=== PATIENT | male | born 1950 | race Caucasian/White ===

== ENCOUNTER → 2017-10-02 | Outpatient (CLI) | payer OTHER, MEDICARE | LOC: BHFA 11:00 | PROVIDERS: ATTEND Internal Medicine Cardiovascular Disease | DX: I48.91 Unspecified atrial fibrillation (principal) ==

== ENCOUNTER → 2017-11-08 | Outpatient (CLI) | payer OTHER, MEDICARE | LOC: BHFA 10:00 | PROVIDERS: ATTEND Internal Medicine Cardiovascular Disease | DX: R09.89 Other specified symptoms and signs involving the circulatory and respiratory systems (principal) ==

== ENCOUNTER 2018-01-02 08:48 | Emergency (ER) | payer OTHER, MEDICARE ==
[2018-01-02 08:55] VITALS: TEMP 98.4
--- NOTE | 2018-01-02 09:03 | CPEKG ---
Heart Rate: 59 RR Interval: 1017 P-R Interval: 152 QRSD Interval: 102 QT Interval: 408 QTC Interval: 405 P [employer]: 61 QRS [employer]: 56 T Wave [employer]: 83 EKG Severity - NORMAL ECG - EKG Impression: SINUS RHYTHM Electronically Signed By: Theodora Kearney 02-Jan-2018 13:45:29
[2018-01-02 09:20] LABS: PLATELET COUNT 130 10^3/uL (150-400)
--- NOTE | 2018-01-02 10:35 | EDPHY ---
H & P Stated Complaint: hx afib/ has had irregular hr x 3 days/ Time Seen by Provider: 01/02/18 08:57 HPI/ROS: Chief complaint: Chest discomfort History of present illness: This is a 67-year-old male who presents to the emergency department for chest discomfort. He states he developed the discomfort 3 nights ago. The 1st night the symptoms began he reports squeezing pressure in his chest and in his back. He became quite clammy. Symptoms ultimately resolved on their own. However the following evening he had episodes of palpitations lasting for few hours. He does have a history of paroxysmal atrial fibrillation and felt this was likely what was causing it. Last night he was feeling well and essentially symptoms have resolved. He talked with his farm or ranch animal caretaker Dr. Nam Jasmine today who asked him to come to the emergency department. On my evaluation he is asymptomatic. Review of systems: A 10 point review of systems was obtained and other than described above was negative - Personal History Current Tetanus/Diphtheria Vaccine: Yes - Medical/Surgical History Hx Asthma: No Hx Chronic Respiratory Disease: No Hx Diabetes: No Hx Cardiac Disease: Yes Hx Renal Disease: No Hx Cirrhosis: No Hx Alcoholism: No Hx HIV/AIDS: No Hx Splenectomy or Spleen Trauma: No Other PMH: afib, depression - Social History Smoking Status: Former smoker - Physical Exam Exam: General Appearance: Alert, nontoxic. Eyes: Pupils equal and round no pallor or injection. ENT, Mouth: Mucous membranes moist. Respiratory: There are no retractions, lungs are clear to auscultation. Cardiovascular: Regular rate and rhythm. Gastrointestinal: Abdomen is soft and nontender, no masses, bowel sounds normal. Neurological: Alert and oriented x4. Strength and sensation intact and symmetrical. Skin: Warm and dry, no rashes. Musculoskeletal: Neck is supple nontender. Extremities are symmetrical, full range of motion. Psychiatric: Patient is oriented X 3, there is no agitation. Constitutional: Initial Vital Signs Temperature (C) 36.9 C 01/02/18 08:52 Heart Rate 76 01/02/18 08:52 Respiratory Rate 18 01/02/18 08:52 Blood Pressure 135/78 H 01/02/18 08:52 O2 Sat (%) 98 01/02/18 08:52 O2 Delivery Mode Room Air Allergies/Adverse Reactions: No Known Allergies Allergy (Verified 01/02/18 08:49) Home Medications: Medication Instructions Recorded Amiodarone HCl [Pacerone (*)] 400 mg PO DAILY PRN 02/28/16 Aspirin [Aspirin 81mg (*)] 81 mg PO BID 02/28/16 Atorvastatin Calcium [Lipitor 10 10 mg PO DAILY 02/28/16 mg (*)] Carisoprodol [Soma (*)] 700 mg PO HS PRN 02/28/16 Herbals/Supplements -Info Only 1 ea PO DAILY 02/28/16 Rivaroxaban [Xarelto 10mg (*)] 20 mg PO DAILY PRN 02/28/16 Sertraline HCl [Zoloft 100mg (*)] 100 mg PO DAILY@16 02/28/16 oxyCODONE IR [Oxycodone Ir (*)] 30 mg PO HS PRN 02/28/16 Irbesartan [Avapro 150 mg (*)] 300 mg PO DAILY 01/02/18 traZODone [traZODONE 100MG (*)] 100 mg PO HS 01/02/18 Medical Decision Making - Diagnostics Imaging Results: Imaging Impressions Chest X-Ray 01/02/18 09:07 Impression: Negative. Imaging: I viewed and interpreted images myself ED Course/Re-evaluation: Patient seen in conjunction with my secondary supervising physician Dr. Theodora Kearney. Patient presents to the emergency department with chest discomfort and palpitations. On presentation he is asymptomatic. He is nontoxic. Workup on him is unremarkable. He is seen in the emergency department by Cardiology, Dr. Tommy Angel. Dr. Angel is comfortable with patient being discharged home. He has arranged a stress test for the patient tomorrow and the day after patient will see his farm or ranch animal caretaker Dr. Jasmine. Plan has been discussed with the patient voiced understanding and agreement. Differential Diagnosis: Included but not limited to ACS, dysrhythmia, pulmonary infections, electrolyte disturbances, anemia - Data Points Laboratory Results: Laboratory Results 01/02/18 09:08 01/02/18 09:08 01/02/18 01/02/18 09:08 09:08 WBC 4.75 10^3/uL 10^3/uL (3.80-9.50) RBC 4.96 10^6/uL 10^6/uL (4.40-6.38) Hgb 16.7 g/dL g/dL (13.7-17.5) Hct 46.7 % % (40.0-51.0) MCV 94.2 fL fL (81.5-99.8) MCH 33.7 pg pg (27.9-34.1) MCHC 35.8 g/dL g/dL (32.4-36.7) RDW 14.0 % % (11.5-15.2) Plt Count 130 10^3/uL L 10^3/uL (150-400) MPV 8.6 fL L fL (8.7-11.7) Neut % (Auto) 55.4 % % (39.3-74.2) Lymph % (Auto) 32.4 % % (15.0-45.0) [place] % (Auto) 9.7 % % (4.5-13.0) Eos % (Auto) 1.7 % % (0.6-7.6) Baso % (Auto) 0.6 % % (0.3-1.7) Nucleat RBC Rel Count 0.0 % % (0.0-0.2) Absolute Neuts (auto) 2.63 10^3/uL 10^3/uL (1.70-6.50) Absolute Lymphs (auto) 1.54 10^3/uL 10^3/uL (1.00-3.00) Absolute Monos (auto) 0.46 10^3/uL 10^3/uL (0.30-0.80) Absolute Eos (auto) 0.08 10^3/uL 10^3/uL (0.03-0.40) Absolute Basos (auto) 0.03 10^3/uL 10^3/uL (0.02-0.10) Absolute Nucleated RBC 0.00 10^3/uL 10^3/uL (0-0.01) Immature Gran % 0.2 % % (0.0-1.1) Immature Gran # 0.01 10^3/uL 10^3/uL (0.00-0.10) Sodium 141 mEq/L mEq/L (135-145) Potassium 4.4 mEq/L mEq/L (3.5-5.2) Chloride 104 mEq/L mEq/L (97-110) Carbon Dioxide 23 mEq/l mEq/l (22-31) Anion Gap 14 mEq/L mEq/L (8-16) BUN 16 mg/dL mg/dL (7-23) Creatinine 0.7 mg/dL mg/dL (0.7-1.3) Estimated GFR > 60 Glucose 140 mg/dL H mg/dL (70-100) Calcium 9.7 mg/dL mg/dL (8.5-10.4) Troponin I < 0.012 ng/mL ng/mL (0.000-0.034) Departure - Departure Disposition: Home, Routine, Self-Care Clinical Impression: Chest discomfort Condition: Good Instructions: Chest Pain (ED) Additional Instructions: You have a stress test tomorrow at 1:45 p.m. at your farm or ranch animal caretaker [place] office as discussed with him Please also follow up with your farm or ranch animal caretaker, Dr. Nam Jasmine on Sunday as already arranged If symptoms worsen or new symptoms develop return to the emergency room for recheck Referrals: Raquel Villalta MD [Primary Care Provider] - As per Instructions
[2018-01-02 11:32] VITALS: BP 142/79; PULSE 66; RESP 16; O2SAT 97
--- NOTE | 2018-01-02 12:29 | GCON ---
[f rep st] CONSULTATION CARDIOLOGY CONSULTATION DATE OF CONSULTATION: 01/02/2018 INDICATIONS: Chest discomfort. HISTORY OF PRESENT ILLNESS: Mr. Delgado is 67 years old and followed as an outpatient by Dr. Nam Romero. His cardiovascular history is significant for hypertension and paroxysmal atrial fibrillation. As an outpatient, he has been treated aggressively with respect to his blood pressure. He uses ami odarone and Eliquis as "pill in a pocket" when he experiences symptomatic episodes of atrial fibrilla tion. Typically, he is a very active individual. He likes to exercise aggressively 3 days a week an d has no symptoms of chest discomfort or dyspnea with activities. He states that on Sunday and Sunday evening, he felt unusual. His days were fairly unremarkable and consisted of his usual exercise routine without symptoms. During the evening, he had increased eruc tation and heartburn. This was associated with diarrhea and excess flatulence as well. He noted beryl t his heart was beating irregularly, which awakened him from sleep at about 2 o'clock in the morning. When he took his pulse, he noted that he was missing periodical beats, however, his heart was not ra cing. With this, he had mild chest pressure and a sensation of anxiety. He also felt mildly diaphor etic. His symptoms lasted between 30 minutes and 2 hours, and resolved. Sunday evening, he had a s imilar sensation, although this time had only and an irregular sensation to his heartbeat without lauren st pain. He went about his normal daily activities without concerning symptoms. He contacted Dr. Romero today who advised him to come to the emergency department. He notes no effort intolerance. He has not had any episodes of racing heart rate. He notes no dizziness or lightheadedness. He denies dyspnea. He has not any fever, chills or sweats. On one occasion, he did use his amiodarone and Xar elto. REVIEW OF SYSTEMS: A full 10-point review of systems was performed and was otherwise negative. PAST MEDICAL HISTORY: 1. Paroxysmal atrial fibrillation with a CHADS-VASc score of 2. 2. Hypogonadism. 3. Hyperlipidemia. 4. Hypertension. 5. Osteoarthritis. 6. Glucose intolerance. HOME MEDICATIONS: Atorvastatin, carisoprodol, irbesartan, ketoconazole, oxycodone, testosterone, tra zodone, Voltaren, Xarelto, and p.r.n. use of amiodarone. SOCIAL HISTORY: He is . He and his live up in [place]. He smokes marijuana occasiona lly. Does not use cigarettes. He drinks alcohol rarely. As stated previously, he is very active. ALLERGIES: None. FAMILY HISTORY: At this point is noncontributory. PHYSICAL EXAMINATION: VITAL SIGNS: Blood pressure 142/79 with a mean of 100, heart rate of 66, room air saturations of 97%. GENERAL: Healthy white male in no acute distress. HEENT: Normocephalic, at raumatic. He has anicteric sclerae. Oropharynx unremarkable. NECK: Carotids 2+ bilaterally with no bruits. He has no jugular venous distention, adenopathy or thyromegaly. RESPIRATORY: He is breathing easy, using no accessory muscles on auscultation. He has clear lung barrios bilaterally. He speaks i n full sentences. CARDIAC: Precordial inspection is unremarkable. PMI is nonpalpable. On auscultat ion, he has a regular rate and rhythm without murmurs, gallops, or rubs. ABDOMEN: Soft, nontender, with normoactive bowel sounds. Nonpalpable aorta. No masses. EXTREMITIES: Extremities are warm and well perfused. He has no edema. Vasculature is 2+ radial dorsal pedal and posterior tibial pulses. NEUROLOGIC: He is alert and oriented with a pleasant mood and affect. DATABASE: Electrocardiogram demonstrates sinus bradycardia at 59 beats per minute with no ST or T ch anges. His chest x-ray is unremarkable. CBC is normal. Chemistry panel is remarkable for a glucose of 140. Troponin is negative. The patient had a carotid ultrasound done November 08, 2017 that trace cated no evidence of internal carotid disease. He did have heavily calcified external carotid arteri es. The patient states he had a previous coronary calcium score performed which yielded a score of 8 . This was, however, in the distant past. He had a Holter monitor done September of last year. Amyi ng that study, he had no episodes of atrial fibrillation. There were 5 PACs identified. A previous echocardiogram in January of 2017 demonstrated mild aortic and mitral calcification with a normal eject ion fraction. Mild LVH was noted with diastolic dysfunction. IMPRESSION: Mr. Delgado is 67 years old with a cardiovascular history that includes paroxysmal atrial fibrillation with a CHADS-VASc score of 2, hypertension, hyperlipidemia, and evidence of nonobstruct yancy vascular disease by previous carotid ultrasound and coronary calcium score. He presents now with episodes of skipped heart beats associated with mild chest pressure. Despite these symptoms, he con tinues to be extraordinarily active with no exertional chest discomfort. Additionally, he has had a great deal of flatulence and eructation. Today, he is in sinus rhythm and feeling well. His ECG and cardiac enzymes are negative. At this point, I think he is experiencing symptomatic extrasystoles. These might be PVCs or PACs. It does not appear that he has had recurrent atrial fibrillation based on the description of his symptoms. There is no indication of an acute coronary syndrome at this po int. As result, I think that he can be discharged home with an expedited workup. I have arranged fo r him to have a stress myocardial perfusion imaging study in our office tomorrow at 2 o'clock. He king s a followup appointment see Dr. Jasmine on Sunday. He will continue his current medications as presc ribed. He will return to the emergency department for recurrent symptoms. /[id number]/MODL
== END 2018-01-02 11:40 | disposition home or self-care (01) ==
DX: R07.89 Other chest pain (principal); Z79.82 Long term (current) use of aspirin; Z87.891 Personal history of nicotine dependence

== ENCOUNTER → 2018-01-03 | Outpatient (CLI) | payer OTHER, MEDICARE | LOC: BHLMT 14:00 | PROVIDERS: ATTEND Internal Medicine Cardiovascular Disease | DX: R07.9 Chest pain, unspecified (principal); R00.2 Palpitations | CPT/HCPCS: 78452; 93017; A9500 ==

== ENCOUNTER 2018-01-10 07:39 | Observation (INO) | payer OTHER, MEDICARE ==
[2018-01-10] MEDS ORDERED: FAMOTIDINE 20 MG TAB PO ONE (07:45)
[2018-01-10] MEDS ORDERED: diphenhydrAMINE 25 MG CAP PO ONE ×2 (07:45→08:06)
[2018-01-10] MEDS ORDERED: DIAZEPAM 5 MG TAB PO ONE (07:45)
[2018-01-10] MEDS ORDERED: ASPIRIN EC 325 MG TAB PO ONE (07:45)
[2018-01-10] MEDS ORDERED: NS 1,000 ML IV ONE (07:45)
--- NOTE | 2018-01-10 08:01 | CPEKG ---
Heart Rate: 54 RR Interval: 1111 P-R Interval: 164 QRSD Interval: 106 QT Interval: 416 QTC Interval: 395 P [place]: 56 QRS [place]: 45 T Wave [place]: 71 EKG Severity - BORDERLINE ECG - EKG Impression: SINUS RHYTHM EKG Impression: EARLY R WAVE PROGRESSION CONSIDER PRIOR POSTERIOR [place] Electronically Signed By: Nam Jasmine 16-Jan-2018 10:14:27
[2018-01-10] MEDS ORDERED: DIAZEPAM 5 MG TAB ONE (08:07)
[2018-01-10] MEDS ORDERED: FAMOTIDINE 20 MG TAB ONE (08:07)
[2018-01-10 08:20] LABS: PLATELET COUNT 129 10^3/uL (150-400)
[2018-01-10 08:28] LABS: INR 1.08 (0.83-1.16); PROTIME(PATIENT) 14.2 SEC (12.0-15.0)
[2018-01-10] MEDS ORDERED: LIDOCAINE 1% 300 MG/30 ML SDV ONE (09:06)
--- NOTE | 2018-01-10 09:06 | PDHPUP ---
History & Physical Update H&P update statement: This history and physical update is based on an assessment of the patient which was completed after admission or registration (within 24 hours), but prior to the surgery/procedure. H&P update: H&P reviewed & patient examined, no change in patient's condition since H&P completed
--- NOTE | 2018-01-10 09:06 | PDPROPOC ---
Sedation Plan of Care Sedation Plan of Care: vital signs stable, mental status noted, patient educated of risks, benefits, alternatives, patient can tolerate sedation ASA Classification: ASA 3 Planned drugs: fentanyl, midazolam Mallampati Score: Class 3 Mallampati Reference Image: Patient passed 3-3-2 rule?: Yes
[2018-01-10] MEDS ORDERED: MIDAZOLAM 2 MG/2 ML VIAL ONE ×3 (09:07→09:49)
[2018-01-10] MEDS ORDERED: fentaNYL 100 MCG/2 ML INJ ONE ×2 (09:07→09:40)
[2018-01-10] MEDS ORDERED: IOPAMIDOL (ISOVUE-370) 150 ML BTL IV ONE (09:07)
[2018-01-10] MEDS ORDERED: VERAPAMIL 5 MG/2 ML VIAL ONE (09:18)
[2018-01-10] MEDS ORDERED: HEPARIN 10,000 UNIT/10 ML MDV (1,000 UNIT/ML) ONE (09:18)
--- NOTE | 2018-01-10 09:47 | PDDXCAT ---
Diagnostic Cath Note - . Date: 01/10/18 [employer] Solution Architect: Mitali Indication: other (CCS Class III angina, [place] Heart Association Class II, Intermediate risk stress test) - Procedure Access: right wrist Procedure: left heart catheterization, coronary angiography - Materials Left Heart Cath size: 5F Left Heart Cath materials: standard multipack (JL4, JR4, pigtail) - Findings-Left Heart Catheterization LM: 6mm in size. Bifurcates into an LAD and circumflex system. LAD: 4mm in size. There is a 2.5mm diagonal vessel. The vessel tapers distally and may have a minor muscle bridge in its mid segment. LCX: The circumflex is 4mm in size proximally. The OM branch has a 69% plaque stenosis at the mid circumflex. VIDAL III flow throughout. The lesion corresponds to the wall motion abnormality noted on stress echocardiogram. RCA: 3.5-4 mm in size and dominant, It gives rise to the PDA and PLV branches. VIDAL III flow throughout. EDP: 12mmHg. LVEF: The EF is normal at 65% Wall motion: There is basal inferior wall hypokinesis. Complications: None. Estimated blood loss: <50ml Closure method: TR Band Assessment: The patient has [place] vessel coronary artery disease with a 69% plaque area stenosis of the mid circumflex that required stenting. Plan: Dual antiplatelet therapy with Aspirin 325mg for the first month followed by Aspirin 81mg along with Plavix 75mg daily should be continued for at least 1 year following drug eluting stent implantation. No elective surgery for the first 3 months. Decisions to stop dual antiplatelet therapy before 1 year should involve our office at [facility] [phone], unless the patient is having acute and life threatening bleeding. Intervention: A 6 [place] JL 3.5 Launcher was used for guide catheter support. A 0.014 Intuition wire was advanced across the lesion in the OM under direct fluoroscopic and angiographic guidance. The 69% lesion in the OM was then primarily stented with a [place] [employer] 2.50 x 20 Synergy Drug Eluting stent. The plaque then shifted to the distal margin of the stent requiring a second stent to be placed in an overlapping fashion in the distal circ/OM. A 2.25 x 12 Drug Eluting Stent was placed at that location. There was VIDAL III flow pre and post stent implantation. Post stent residual obstruction was 0%. Patient Problems: Problems Problem Status Onset Supraventricular tachycardia Acute
[2018-01-10] MEDS ORDERED: ETOMIDATE 40 MG/20 ML INJ ONE (09:51)
[2018-01-10] MEDS ORDERED: CLOPIDOGREL BISULFATE 75 MG TAB ONE (10:32)
[2018-01-10] MEDS ORDERED: OXYCODONE/APAP 5/325 TAB PO PRN (10:45)
[2018-01-10] MEDS ORDERED: LORazepam 2 MG/ML INJ IVP PRN (10:45)
[2018-01-10] MEDS ORDERED: HYDROCODONE/APAP 5/325 TAB PO PRN (10:45)
[2018-01-10] MEDS ORDERED: TEMAZEPAM 15 MG CAP PO PRN (10:45)
[2018-01-10] MEDS ORDERED: ONDANSETRON 4 MG/2 ML VIAL IVP PRN (10:45)
[2018-01-10] MEDS ORDERED: NITROGLYCERIN 0.4 MG BTL SL PRN (10:45)
[2018-01-10] MEDS ORDERED: NS 1,000 ML IV SCH (10:45)
[2018-01-10] MEDS ORDERED: CLOPIDOGREL BISULFATE 75 MG TAB PO ONE (10:45)
[2018-01-10] MEDS ORDERED: ATROPINE SULFATE 1 MG/10 ML SYR IVP PRN (10:45)
[2018-01-10] MEDS ORDERED: CARISOPRODOL 350 MG TAB PO PRN (10:49)
[2018-01-10] MEDS ORDERED: AMIODARONE HCL 200 MG TAB PO PRN (10:49)
--- NOTE | 2018-01-10 11:00 | CPEKG ---
Heart Rate: 52 RR Interval: 1154 P-R Interval: 176 QRSD Interval: 110 QT Interval: 448 QTC Interval: 417 P [place]: 46 QRS [place]: 45 T Wave [place]: 56 EKG Severity - ABNORMAL ECG - EKG Impression: SINUS RHYTHM EKG Impression: NONSPECIFIC INTRAVENTRICULAR CONDUCTION DELAY EKG Impression: EARLY R WAVE CONSIDER PRIOR POSTERIOR [place] Electronically Signed By: Nam Jasmine 16-Jan-2018 10:15:01
[2018-01-10] MEDS ORDERED: SERTRALINE HCL 100 MG TAB PO SCH (16:00)
[2018-01-10] MEDS ORDERED: traZODone 100 MG TAB PO SCH (21:00)
[2018-01-11 04:02] LABS: PLATELET COUNT 120 10^3/uL (150-400)
--- NOTE | 2018-01-11 08:59 | CPEKG ---
Heart Rate: 65 RR Interval: 923 P-R Interval: 156 QRSD Interval: 102 QT Interval: 404 QTC Interval: 421 P [place]: 66 QRS [place]: 62 T Wave [place]: 66 EKG Severity - NORMAL ECG - EKG Impression: SINUS RHYTHM EKG Impression: EARLY R WAVE PROGRESSION WITH NONSPECIFIC INTERVENTRICULAR CONDUCTION DELAY EKG Impression: CONSIDER PRIOR POSTERIOR [place] Electronically Signed By: Nam Jasmine 16-Jan-2018 10:15:54
[2018-01-11] MEDS ORDERED: ASPIRIN EC 325 MG TAB PO SCH (09:00)
[2018-01-11] MEDS ORDERED: CLOPIDOGREL BISULFATE 75 MG TAB PO SCH (09:00)
[2018-01-11] MEDS ORDERED: ATORVASTATIN CALCIUM 10 MG TAB PO SCH (09:00)
[2018-01-11] MEDS ORDERED: ASPIRIN 325 MG TAB PO SCH (09:00)
[2018-01-11] MEDS ORDERED: IRBESARTAN 150 MG TAB PO SCH (09:00)
[2018-01-11 09:05] VITALS: BP 133/87; PULSE 75; RESP 15; TEMP 97.7; O2SAT 94
--- NOTE | 2018-01-11 11:25 | GDS ---
[f rep st] DISCHARGE SUMMARY PRIMARY PRINTING SCREEN ASSEMBLER: Nam Jasmine MD DISCHARGE DIAGNOSES: 1. Coronary artery disease with 69% stenosis to the obtuse marginal artery, status post stenting with a 2.5 x 20 mm and overlapping 2.25 x 12 mm Synergy drug-eluting stents. 2. Hyperlipidemia. 3. Paroxysmal atrial fibrillation. 4. Hypertension. HOSPITAL COURSE: For detailed H and P, please see prior dictation. Briefly, Erick is a 67-year-old male with a history of hypertension, hyperlipidemia, and paroxysmal atrial fibrillation. He had noted a rapid heart rate with associated chest pressure and diaphoresis. Due to his symptoms, he had a nuclear stress test which was abnormal showing a small inferior defect. Ultimately, I proceeded with an angiogram by Dr. Nam Jasmine. This was performed on January 10, 2018. He was found to have a normal right coronary artery and left anterior descending artery. His left circumflex artery had a 69 % stenosis within the obtuse marginal artery. This correlated with his nuclear stress abnormality and, therefore, it was stented. He had a 2.5 x 20 mm drug- eluting Synergy stent placed. Some of the plaque displaced distally and, therefore, he had a 2nd overlapping stent, which measured 2.25 x 12 mm placed. This was a Synergy drug-eluting stent as well. The following morning, the patient denied any chest discomfort. He was monitored on telemetry and remained in normal sinus rhythm. His EKG showed normal sinus rhythm without any ST-T wave changes to suggest ischemia. PHYSICAL EXAMINATION: GENERAL: Patient appears in no acute distress. VITALS: Blood pressure 133/87, heart rate 75, oxygen saturation of 94% on room air. Afebrile. LUNGS: Clear to auscultation. No wheezes, rhonchi, or crackles auscultated. CARDIAC: Regular rate and rhythm without any murmurs, rubs, or gallops appreciated. EXTREMITIES: Right wrist where access was obtained for the angiogram is clean and intact, without any evidence of hematoma or infection. DISCHARGE MEDICATIONS: He will begin Plavix 75 mg daily and aspirin 325 mg daily. He is aware that he is to remain on these medications for a minimum of 1 year. He will continue Eliquis 5 mg b.i.d. p.r.n. for atrial fibrillation, amiodarone 400 mg p.o. daily p.r.n. for atrial fibrillation, herbal supplement daily, Soma 700 mg at nighttime, oxycodone IR 30 mg p.r.n. at bedtime, Lipitor 10 mg daily, Zoloft 100 mg daily, Avapro 300 mg daily, trazodone 100 mg at bedtime, Meloxicam 15 mg daily. PLAN: Erick is currently stable and ready for discharge home. He has been given risk precautions. He will follow up in our office in 1 week. He has a history of paroxysmal atrial fibrillation with a CHADS2-VASc score of 2. He is a very active individual and plans to go on at least 3 rafting trips this year. He is also a big skier. Anticoagulation in the form of Eliquis and Plavix have been discussed with him. He will need to remain on aspirin and Plavix, but him and Dr. Jasmine decided on Eliquis to be taken p.r.n. for atrial fibrillation only. Greater than 30 minutes was spent coordinating the patient's care today. /[id number]/MODL MTDD
--- NOTE | 2018-01-11 16:49 | ASDISCHSUM ---
Discharge Information Plan Status:Home with No Needs Medically Cleared to Leave:01/11/2018 Discharge Date:01/11/2018 10:12 AM CM D/C Disposition:Home, Routine, Self-Care ADT D/C Disposition:Home, Routine, Self-Care Projected Discharge Date:01/11/2018 10:12 AM Transportation at D/C: Discharge Delay Reason: Follow-Up Date:01/11/2018 10:12 AM Discharge Slot: Final Diagnosis: Placement Information Patient Contact Information Contact Name:SHANNON Relationship: Address:[address] City:[place] Alternate Phone: State/Zip Code:[place] [address] Email: Financial Information Financial Class:Medicare Primary Plan Desc:MEDICARE OUTPATIENT Primary Plan Number:[id number] Secondary Plan Desc:RANJAN/MDR SUPPLEMENT Secondary Plan Number:[id number] Assessment Information LACE LACE Length of stay for Answers: Less than 1 day current admission Acuity / Level of Answers: No Care: Did the patient have an inpatient admission? Comorbidities - select Answers: Coronary Artery Disease all that apply Other Notes: angina, stent # of Emergency department Answers: 1-2 visits in the last 6 months Score: 4 Date Signed: 01/11/2018 04:48 PM Electronically Signed By:Anca Brunner RN Intervention Information Intervention Type:*SHAAN-Signed Date of Service:01/11/2018 10:03 AM Patient Type:Observation Staff Member:Leonela Downey Hours: Discipline: Severity: Comment:
== END 2018-01-11 10:12 | disposition home or self-care (01) ==
LOC: FCATH 07:39 → F2W 10:45
PROVIDERS: ADMIT Internal Medicine Cardiovascular Disease; ATTEND Internal Medicine Cardiovascular Disease
PROC: 4A023N7 Measurement of Cardiac Sampling and Pressure, Left Heart, Percutaneous Approach (ICD-10-PCS; principal; 2018-01-10)
PROC: 027035Z Dilation of Coronary Artery, One Artery with Two Drug-eluting Intraluminal Devices, Percutaneous Approach (ICD-10-PCS; principal; 2018-01-10)
PROC: B2151ZZ Fluoroscopy of Left Heart using Low Osmolar Contrast (ICD-10-PCS; principal; 2018-01-10)
PROC: B2111ZZ Fluoroscopy of Multiple Coronary Arteries using Low Osmolar Contrast (ICD-10-PCS; principal; 2018-01-10)
DX: I25.119 Atherosclerotic heart disease of native coronary artery with unspecified angina pectoris (principal); I48.0 Paroxysmal atrial fibrillation; I10 Essential (primary) hypertension; E78.5 Hyperlipidemia, unspecified; F41.9 Anxiety disorder, unspecified
CPT/HCPCS: 93005; 93458; C1769; C1874; C1887; C9600; J1644; J2250; J3010; Q9967

== ENCOUNTER 2018-01-28 22:53 | Emergency (ER) | payer OTHER, MEDICARE ==
--- NOTE | 2018-01-28 23:06 | EDPHY ---
H & P Stated Complaint: Flutter in chest, believes he went into A-fib. Time Seen by Provider: 01/28/18 23:05 HPI/ROS: HPI CHIEF COMPLAINT: Palpitations, recent cardiac stent HISTORY OF PRESENT ILLNESS: Patient is a 67-year-old male, history of AFib proximal, additionally history recent cardiac stents, he presents emergency room with palpitations. He states around 9 o'clock this evening he was sitting down reading and felt his heart very irregular. He states it was not fast. He had some lightheadedness associated with but no chest pain or shortness of breath. He denies nausea vomiting or diaphoresis. He states he feels fine. Decided come the emergency room as he recently was here last month and had a cardiac stent placed. He did take his Eliquis and amiodarone prior to coming to the emergency room. Upon arrival he has no chest pain or shortness of breath is resting comfortably he states he feels okay at this time. Past Medical History: Hypertension, cardiac disease with coronary stents recently placed last month, AFib proximal Past Surgical History: Cardiac stent right radial approach. Social History: Denies drugs alcohol tobacco products. Resides in [facility]. Family History: Noncontributory ROS REVIEW OF SYSTEMS: A comprehensive 10 point review of systems is otherwise negative aside from elements mentioned in the history of present illness. Exam Constitutional appears well nontoxic no acute distress triage nursing summary reviewed, vital signs reviewed, awake/alert. Eyes normal conjunctivae and sclera, EOMI, PERRLA. HENT normal inspection, atraumatic, moist mucus membranes, no epistaxis, neck supple/ no meningismus, no raccoon eyes. Respiratory clear to auscultation bilaterally, normal breath sounds, no respiratory distress, no wheezing. Cardiovascular rate normal, regular rhythm, no murmur, no edema, distal pulses normal. Gastrointestinal soft, non-tender, no rebound, no guarding, normal bowel sounds, no distension, no pulsatile mass. Genitourinary no CVA tenderness. Musculoskeletal no midline vertebral tenderness, full range of motion, no calf swelling, no tenderness of extremities, no meningismus, good pulses, neurovascularly intact. Skin pink, warm, & dry, no rash, skin atraumatic. Neurologic awake, alert and oriented x 3, AAOx3, moves all 4 extremities equally, motor intact, sensory intact, CN II-XII intact, normal cerebellar, normal vision, normal speech. Psychiatric normal mood/affect. Heme/Lymph/Immune no lymphadenopathy. 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 He has no chest pain or shortness of breath. Will check a troponin EKG. Re-evaluation: EKG interpretation by me on record in [employer] system. Impression time of EKG 2319, sinus rhythm rate of 71, no signs of AFib on this EKG. There is no ST elevation no ST depression no T-wave abnormalities. Unremarkable EKG. 0124: Patient resting comfortably no acute distress. Blood work and chest x- ray has been reviewed. Chest x-ray is unremarkable normal size heart. No pleural effusions. Additionally blood work is reassuring. Troponin negative. EKG is nonischemic with no evidence of AFib. I did re-evaluate this patient at 1:25 a.m. Is resting comfortably with no chest pain or shortness of breath. He is agreeable for repeat EKG and troponin at 3:30 a.m.. This will be close to 6 hr after his episode of palpitations. He did not have any chest pain or shortness of breath. He has not been in AFib or any other cardiac arrhythmia here in the emergency room on the monitor. Plan will be for repeat EKG repeat labs. If he remains asymptomatic and stable our allowed to go home. I did discussed return precautions with me understands return if he develops chest pain or shortness of breath or palpitations or does not feel well. He understands. EKG interpretation by me on record in [employer] system. Impression this is a repeat EKG time a repeat EKG 3:39 a.m., sinus rhythm rate of [address] elevation or ST depression or significant T-wave abnormalities. No signs of cardiac arrhythmia unremarkable EKG and unchanged from previous EKG. 0430: Patient is sleeping resting comfortably. No signs of cardiac arrhythmia on the monitor. Repeat troponin and EKG unremarkable. Patient feels comfortable being discharged. Understands return emergency room if he has worsening symptoms chest pain shortness of breath palpitations syncope. Source: Patient - Personal History Current Tetanus/Diphtheria Vaccine: Yes Current Tetanus Diphtheria and Acellular Pertussis (TDAP): Yes - Medical/Surgical History Hx Asthma: No Hx Chronic Respiratory Disease: No Hx Diabetes: No Hx Cardiac Disease: Yes Hx Renal Disease: No Hx Cirrhosis: No Hx Alcoholism: No Hx HIV/AIDS: No Hx Splenectomy or Spleen Trauma: No Other PMH: afib, [place], Stents x2 - Social History Smoking Status: Former smoker Constitutional: Initial Vital Signs Temperature (C) 37 C 01/28/18 22:56 Heart Rate 86 01/28/18 22:56 Respiratory Rate 17 01/28/18 22:56 Blood Pressure 140/99 H 01/28/18 22:56 O2 Sat (%) 94 01/28/18 22:56 O2 Delivery Mode Room Air Allergies/Adverse Reactions: No Known Allergies Allergy (Verified 01/02/18 08:49) Home Medications: Medication Instructions Recorded Amiodarone HCl [Pacerone (*)] 400 mg PO DAILY PRN 02/28/16 Atorvastatin Calcium [Lipitor 10 10 mg PO DAILY 02/28/16 mg (*)] Carisoprodol [Soma (*)] 700 mg PO HS PRN 02/28/16 Herbals/Supplements -Info Only 1 ea PO DAILY 02/28/16 Sertraline HCl [Zoloft 100mg (*)] 100 mg PO DAILY@16 02/28/16 oxyCODONE IR [Oxycodone Ir (*)] 30 mg PO HS PRN 02/28/16 Irbesartan [Avapro 150 mg (*)] 300 mg PO DAILY 01/02/18 traZODone [traZODONE 100MG (*)] 100 mg PO HS 01/02/18 Aspirin [Aspirin 325 mg (*)] 325 mg PO DAILY 01/07/18 Apixaban [Eliquis] 5 mg PO BID PRN #30 tab 01/11/18 Clopidogrel Bisulfate [Plavix (*)] 75 mg PO DAILY #30 tab 01/11/18 Medical Decision Making - Diagnostics Imaging Results: Imaging Impressions Chest X-Ray 01/28/18 23:19 Impression: Bibasilar airspace opacities, likely atelectasis given low lung volumes. - Data Points Laboratory Results: Laboratory Results 01/28/18 23:30 01/28/18 23:30 01/29/18 01/28/18 01/28/18 03:35 23:30 23:30 WBC RBC Hgb Hct MCV MCH MCHC RDW Plt Count MPV Neut % (Auto) Lymph % (Auto) [place] % (Auto) Eos % (Auto) Baso % (Auto) Nucleat RBC Rel Count Absolute Neuts (auto) Absolute Lymphs (auto) Absolute Monos (auto) Absolute Eos (auto) Absolute Basos (auto) Absolute Nucleated RBC Immature Gran % Immature Gran # PT 15.6 SEC H SEC (12.0-15.0) INR 1.22 H (0.83-1.16) APTT 30.1 SEC SEC (23.0-38.0) Sodium 135 mEq/L mEq/L (135-145) Potassium 4.6 mEq/L mEq/L (3.5-5.2) Chloride 101 mEq/L mEq/L (97-110) Carbon Dioxide 24 mEq/l mEq/l (22-31) Anion Gap 10 mEq/L mEq/L (8-16) BUN 23 mg/dL mg/dL (7-23) Creatinine 0.8 mg/dL mg/dL (0.7-1.3) Estimated GFR > 60 Glucose 109 mg/dL H mg/dL (70-100) Calcium 9.2 mg/dL mg/dL (8.5-10.4) Magnesium 2.0 mg/dL mg/dL (1.6-2.3) Total Bilirubin 0.5 mg/dL mg/dL (0.1-1.4) Conjugated Bilirubin 0.5 mg/dL mg/dL (0.0-0.5) Unconjugated Bilirubin 0.0 mg/dL mg/dL (0.0-1.1) AST 35 IU/L IU/L (17-59) ALT 50 IU/L IU/L (21-72) Alkaline Phosphatase 92 IU/L IU/L (38-126) Creatine Kinase 96 IU/L IU/L (0-224) CK-MB (CK-2) Fraction 3.25 ng/mL H ng/mL (0.00-3.19) CK-MB (CK-2) % 3.4 % % (0.0-4.0) Creatine Kinase Interp NEGATIVE (NEGATIVE) Troponin I < 0.012 ng/mL ng/mL < 0.012 ng/mL ng/mL (0.000-0.034) (0.000-0.034) NT-Pro-B Natriuret Pep 38 pg/mL pg/mL (0-125) Total Protein 6.7 g/dL g/dL (6.3-8.2) Albumin 4.2 g/dL g/dL (3.5-5.0) 01/28/18 23:30 WBC 5.79 10^3/uL 10^3/uL (3.80-9.50) RBC 4.45 10^6/uL 10^6/uL (4.40-6.38) Hgb 15.0 g/dL g/dL (13.7-17.5) Hct 41.2 % % (40.0-51.0) MCV 92.6 fL fL (81.5-99.8) MCH 33.7 pg pg (27.9-34.1) MCHC 36.4 g/dL g/dL (32.4-36.7) RDW 12.8 % % (11.5-15.2) Plt Count 143 10^3/uL L 10^3/uL (150-400) MPV 8.9 fL fL (8.7-11.7) Neut % (Auto) 47.8 % % (39.3-74.2) Lymph % (Auto) 39.6 % % (15.0-45.0) [place] % (Auto) 10.4 % % (4.5-13.0) Eos % (Auto) 1.6 % % (0.6-7.6) Baso % (Auto) 0.3 % % (0.3-1.7) Nucleat RBC Rel Count 0.0 % % (0.0-0.2) Absolute Neuts (auto) 2.77 10^3/uL 10^3/uL (1.70-6.50) Absolute Lymphs (auto) 2.29 10^3/uL 10^3/uL (1.00-3.00) Absolute Monos (auto) 0.60 10^3/uL 10^3/uL (0.30-0.80) Absolute Eos (auto) 0.09 10^3/uL 10^3/uL (0.03-0.40) Absolute Basos (auto) 0.02 10^3/uL 10^3/uL (0.02-0.10) Absolute Nucleated RBC 0.00 10^3/uL 10^3/uL (0-0.01) Immature Gran % 0.3 % % (0.0-1.1) Immature Gran # 0.02 10^3/uL 10^3/uL (0.00-0.10) PT INR APTT Sodium Potassium Chloride Carbon Dioxide Anion Gap BUN Creatinine Estimated GFR Glucose Calcium Magnesium Total Bilirubin Conjugated Bilirubin Unconjugated Bilirubin AST ALT Alkaline Phosphatase Creatine Kinase CK-MB (CK-2) Fraction CK-MB (CK-2) % Creatine Kinase Interp Troponin I NT-Pro-B Natriuret Pep Total Protein Albumin Medications Given: Discontinued Medications Sodium Chloride (Ns) 500 mls @ 1,000 mls/hr IV EDNOW ONE PRN Reason: Protocol Stop: 01/28/18 23:48 Last Admin: 01/28/18 23:36 Dose: 500 mls Departure - Departure Disposition: Home, Routine, Self-Care Clinical Impression: Palpitations Condition: Good Instructions: Heart Palpitations (ED) Additional Instructions: 1. Return to the emergency room immediately if he develops chest pain shortness of breath fast heart rate or palpitations or you do not feel well. Referrals: Raquel Villalta MD [Primary Care Provider] - As per Instructions
[2018-01-28] MEDS ORDERED: NS 500 ML IV ONE (23:19)
--- NOTE | 2018-01-28 23:23 | CPEKG ---
Heart Rate: 71 RR Interval: 845 P-R Interval: 160 QRSD Interval: 104 QT Interval: 368 QTC Interval: 400 P [place]: 60 QRS [place]: 45 T Wave [place]: 60 EKG Severity - NORMAL ECG - EKG Impression: SINUS RHYTHM Electronically Signed By: Consuelo Lenz 30-Jan-2018 17:03:39
[2018-01-28 23:36] LABS: PLATELET COUNT 143 10^3/uL (150-400)
[2018-01-28 23:45] LABS: INR 1.22 (0.83-1.16); PROTIME(PATIENT) 15.6 SEC (12.0-15.0)
[2018-01-28 23:50] LABS: CREATINE KINASE 96 IU/L (0-224)
--- NOTE | 2018-01-29 03:42 | CPEKG ---
Heart Rate: 53 RR Interval: 1132 P-R Interval: 168 QRSD Interval: 104 QT Interval: 424 QTC Interval: 399 P [place]: 53 QRS [place]: 42 T Wave [place]: 53 EKG Severity - NORMAL ECG - EKG Impression: SINUS RHYTHM Electronically Signed By: Consuelo Lenz 30-Jan-2018 17:03:14
[2018-01-29 04:40] VITALS: BP 149/87
== END 2018-01-29 04:38 | disposition home or self-care (01) ==
DX: R00.2 Palpitations (principal); I10 Essential (primary) hypertension; E86.9 Volume depletion, unspecified; I25.2 Old myocardial infarction; Z95.5 Presence of coronary angioplasty implant and graft; Z79.82 Long term (current) use of aspirin

== ENCOUNTER → 2018-08-20 | Outpatient (CLI) | payer OTHER, MEDICARE | LOC: BHFA 13:30 | PROVIDERS: ATTEND Internal Medicine Cardiovascular Disease | DX: I48.0 Paroxysmal atrial fibrillation (principal); Z95.5 Presence of coronary angioplasty implant and graft ==

== ENCOUNTER 2019-01-19 15:20 | Observation (INO) | payer OTHER, MEDICARE ==
[2019-01-19] MEDS ORDERED: ASPIRIN 81 MG CHEWABLE TAB PO ONE (15:43)
--- NOTE | 2019-01-19 15:51 | EDPHY ---
HPI/HX/ROS/PE/MDM Narrative: CHIEF COMPLAINT: Back pain, indigestion HISTORY OF PRESENT ILLNESS: The patient is an anticoagulated (Plavix, aspirin ) 68 y/o male with a history of 2 cardiac stents, atrial fibrillation, and hypertension complaining of back pain, indigestion, and hypertension. About a year ago, he had some back pain and clamminess and ultimately had a stress test and 2 cardiac stents placed. For the past few days, he has intermittent back pain and clamminess. He denies any factors that worsen or improve symptoms. Last night, he had more alcohol than normal. Since then, he has had indigestion described as frequent burping and acid reflux, pain in the epigastric region and extending into the back, and has felt woozy and tired. He has associated diarrhea. He denies diagnosed history of indigestion or acid reflux. Given his cardiac history, he grew concerned about a possible heart attack, prompting him to take 2 nitroglycerin and present to the ED. He denies history of gallbladder or liver conditions. No fever, chills, shortness of breath, palpitations, vomiting, diarrhea, urinary complaints, headache, lightheadedness. REVIEW OF SYSTEMS: A comprehensive 10 system review of systems is otherwise negative aside from elements mentioned in the history of present illness and medical decision making PAST MEDICAL HISTORY: 2 cardiac stents, atrial fibrillation, hypertension SOCIAL HISTORY: Lives in [place], , at bedside, retired VITAL SIGNS: Reviewed by me GENERAL: Well-developed, well-nourished, resting comfortably in no respiratory distress. HEENT: Atraumatic. Eyes: No icterus, no injection. Mouth: moist mucous membranes. No erythema or lesions. Neck: supple with no adenopathy. LUNGS: Clear to auscultation bilaterally, no wheezes, rhonchi or rales. CHEST: No tenderness to palpation. No tenderness across the thoracic spine. CARDIAC: Regular rate and rhythm, no rubs, murmurs or gallops. ABDOMEN: Soft, nontender, nondistended, bowel sounds normal. No epigastric or right upper quadrant pain. BACK: No CVA tenderness. EXTREMITIES: No trauma. No edema. Range of motion is normal throughout. NEURO: Alert and oriented, grossly nonfocal. SKIN: Warm and dry, no rash. No diaphoresis. PSYCHIATRIC: Normal mentation, no agitation. ED Course: The patient presents for back pain, indigestion, and fatigue. He has had pain intermittently in his midback for a few days. Last night, he had more alcohol than normal and today has had indigestion, fatigue, and "wooziness". He denies history of indigestion, gallbladder, or liver conditions. On exam, he does not have epigastric or right upper quadrant tenderness. Plan for EKG, CBC, basic metabolic panel, coagulation panel, liver, lipase, troponin, and chest x-ray. 15:50 - EKG is negative for acute findings. Troponin is negative. 16:20 - Chest x-ray is negative for acute findings. Normal mediastinum, no infiltrates, no cardiomegaly. Labs are not indicative of an etiology of the patient's symptoms. The patient will be admitted to Dr. Anne for cardiology consult and further workup. The patient agrees to this course of action. Patient's symptom complex may well be related to gastrointestinal causes, no clear indication for ultrasound at this point in the emergency department. Normal LFTs and lipase. Patient does have some burping on examination. Has not previously had diagnosed GERD or gastritis or peptic ulcer disease. Patient 's prior coronary artery disease presented as back discomfort similar to the discomfort the patient is complaining of over the last several days. Patient will be admitted to the hospital for further cardiac evaluation. MDM: After history and physical examination, the differential for back pain and chest pain was considered, including but not limited to, myocardial ischemia, acute coronary syndrome, pulmonary embolus, gastrointestinal causes, cholecystitis, biliary colic, aortic dissection, chest wall pain, pleural inflammation and pulmonary infectious causes. - Data Points Imaging Results: CXR: Impression: Suspect airways disease. Dictated By: Chago Trivedi MD Imaging: I viewed and interpreted images myself Laboratory Results: Laboratory Results 01/19/19 15:15 01/19/19 15:15 Medications Given: Discontinued Medications Aspirin (Aspirin) 324 mg PO EDNOW ONE Stop: 01/19/19 15:44 Last Admin: 01/19/19 16:09 Dose: 243 mg Aspirin Buffered (Aspirin Ec) 81 mg PO DAILY [facility] Stop: 07/19/19 08:59 Last Admin: 01/20/19 13:09 Dose: 81 mg Atorvastatin Calcium (Lipitor) 20 mg PO DAILY [facility] Stop: 07/19/19 08:59 Last Admin: 01/20/19 13:10 Dose: 20 mg Carisoprodol (Soma) 700 mg PO HS PRN PRN Reason: restless legs Stop: 07/18/19 17:08 Last Admin: 01/19/19 20:55 Dose: 700 mg Clopidogrel Bisulfate (Plavix) 75 mg PO DAILY [facility] Stop: 07/19/19 08:59 Last Admin: 01/20/19 13:09 Dose: 75 mg Irbesartan (Avapro) 300 mg PO DAILY MILY Stop: 07/19/19 08:59 Last Admin: 01/20/19 13:09 Dose: 300 mg Oxycodone HCl (Oxycodone Ir) 30 mg PO HS PRN PRN Reason: Pain, Breakthrough Stop: 01/29/19 17:48 Last Admin: 01/19/19 20:55 Dose: 30 mg Oxycodone HCl (Oxycodone Ir) 30 mg PO ONCE ONE Stop: 01/20/19 04:52 Last Admin: 01/20/19 04:59 Dose: 30 mg Sertraline HCl (Zoloft) 100 mg PO HS MILY Stop: 07/18/19 20:59 Last Admin: 01/19/19 20:55 Dose: 100 mg Trazodone HCl (Trazodone) 100 mg PO HS PRN PRN Reason: insomnia Stop: 07/18/19 17:08 Last Admin: 01/19/19 20:55 Dose: 100 mg Point of Care Test Results: Chemistry 01/19/19 15:35 POC Troponin I 0.00 ng/mL ng/mL (0.00-0.08) General Time Seen by Provider: 01/19/19 15:25 Initial Vital Signs: Initial Vital Signs Temperature (C) 36.7 C 01/19/19 15:22 Heart Rate 65 01/19/19 15:22 Respiratory Rate 17 01/19/19 15:22 Blood Pressure 170/86 H 01/19/19 15:22 O2 Sat (%) 96 01/19/19 15:22 O2 Delivery Mode Room Air Allergies/Adverse Reactions: No Known Allergies Allergy (Verified 01/19/19 15:21) Home Medications: Medication Instructions Recorded Carisoprodol [Soma (*)] 700 mg PO HS PRN 02/28/16 Herbals/Supplements -Info Only 1 ea PO DAILY 02/28/16 Sertraline HCl [Zoloft 100mg (*)] 100 mg PO HS 02/28/16 oxyCODONE IR [Oxycodone Ir (*)] 30 - 60 mg PO HS PRN 02/28/16 Irbesartan [Avapro 150 mg (*)] 300 mg PO DAILY 01/02/18 traZODone [traZODONE 100MG (*)] 100 mg PO HS PRN 01/02/18 Clopidogrel Bisulfate [Plavix (*)] 75 mg PO DAILY #30 tab 01/11/18 Aspirin EC [Aspirin EC 81 mg (*)] 81 mg PO DAILY 01/19/19 Atorvastatin Calcium [Lipitor 20 20 mg PO DAILY 01/19/19 mg (*)] Diclofenac Sodium 1% [Voltaren Gel 1 tone TP BID 01/19/19 (*)] Testosterone Cypionate 100 mg IM Q14D 01/19/19 Departure - Departure Disposition: [facility] Inpatient Acute Clinical Impression: Chest pain Qualifiers: Chest pain type: other chest pain Qualified Code(s): R07.89 - Other chest pain ; R07.8 - Other chest pain Back pain Qualifiers: Back pain location: thoracic back pain Chronicity: acute Back pain laterality: midline Qualified Code(s): M54.6 - Pain in thoracic spine Condition: Fair Report Scribed for: Theodora Kearney Report Scribed by: Linnette Shrestha Date of Report: 01/19/19 Time of Report: 16:38 Physician Review and Approval Statement: Portions of this note were transcribed by a medical investigator. I personally performed a history, physical exam, medical decision making, and confirmed accuracy of information the transcribed note.
[2019-01-19 15:53] LABS: PLATELET COUNT 149 10^3/uL (150-400)
[2019-01-19 16:11] LABS: INR 1.08 (0.83-1.16); PROTIME(PATIENT) 13.6 SEC (12.0-15.0)
[2019-01-19] MEDS ORDERED: ONDANSETRON DISINTEGRATING 4 MG TAB PO PRN (17:05)
[2019-01-19] MEDS ORDERED: ACETAMINOPHEN 325 MG TAB PO PRN (17:05)
[2019-01-19] MEDS ORDERED: ONDANSETRON 4 MG/2 ML VIAL IVP PRN (17:05)
[2019-01-19] MEDS ORDERED: CARISOPRODOL 350 MG TAB PO PRN (17:09)
[2019-01-19] MEDS ORDERED: traZODone 100 MG TAB PO PRN (17:09)
[2019-01-19] MEDS ORDERED: NS 1,000 ML IV SCH (17:15)
--- NOTE | 2019-01-19 17:24 | PDGENHP ---
History and Physical - Chief Complaint chest pain - History of Present Illness Dated Sandy is a 68-year-old male with past medical history of coronary artery disease status post drug-eluting stent placed to his obtuse marginal in December 2017, hyperlipidemia, hypertension who presented to the emergency room with complaints of chest discomfort. He said that last night he had to strong beers , some wine, and a shot of whiskey and then went to bed. He woke up in the middle the night somewhat sweaty, unable to sleep, and with a racing heart. He also had bad heartburn. He had some mild discomfort in between his shoulder blades. This morning the pain in between his shoulder blades was somewhat worse. He was unsure if this was related to a workout that he had done yesterday but was concerned as it was similar to the symptoms he had had a year ago when he ended up with a stent. He tried nitroglycerin and that did seem to relieve his pain and so he came to the emergency room for further evaluation. He has had some mild GI upset this morning. Otherwise he has had no shortness of breath, cough, new lower extremity edema, orthopnea or other symptoms. History Information - Allergies/Home Medication List Allergies/Adverse Reactions: No Known Allergies Allergy (Verified 01/19/19 15:21) Home Medications: Carisoprodol [Soma (*)] 700 mg PO HS PRN 02/28/16 [Last Taken 01/09/18 22:00] Herbals/Supplements -Info Only 1 ea PO DAILY 02/28/16 [Last Taken 01/18/19] Sertraline HCl [Zoloft 100mg (*)] 100 mg PO HS 02/28/16 [Last Taken 01/18/19] oxyCODONE IR [Oxycodone Ir (*)] 30 - 60 mg PO HS PRN 02/28/16 [Last Taken 22:00] Irbesartan [Avapro 150 mg (*)] 300 mg PO DAILY 01/02/18 [Last Taken 01/19/19] traZODone [traZODONE 100MG (*)] 100 mg PO HS PRN 01/02/18 [Last Taken 01/18/19] Aspirin EC [Aspirin EC 81 mg (*)] 81 mg PO DAILY 01/19/19 [Last Taken 01/19/19] Atorvastatin Calcium [Lipitor 20 mg (*)] 20 mg PO DAILY 01/19/19 [Last Taken ] Diclofenac Sodium 1% [Voltaren Gel (*)] 1 tone TP BID 01/19/19 [Last Taken ] Testosterone Cypionate 100 mg IM Q14D 01/19/19 [Last Taken 01/05/19] I have personally reviewed and updated: family history, medical history, social history, surgical history - Past Medical History coronary artery disease, hypertension, hyperlipidemia Additional medical history: History of hepatitis C treated. - Surgical History Reports: no pertinent surgical hx Additional surgical history: Stent in 2018 - Family History Positive for: non-pertinent - Social History Smoking Status: Former smoker Alcohol Use: Other (Drinks a couple of beers each night but says that these are particularly strong beers some as high as 10% alcohol) Review of Systems Review of Systems: ROS: 10pt was reviewed & negative except for what was stated in HPI & below Physical Exam Physical Exam: Temp Pulse Resp BP Pulse Ox 36.4 C 64 15 160/91 H 98 01/19/19 17:11 01/19/19 17:11 01/19/19 17:11 01/19/19 17:11 01/19/19 17:11 Constitutional: no apparent distress, appears nourished, not in pain Eyes: PERRL, anicteric sclera, EOMI Ears, Nose, Mouth, Throat: moist mucous membranes, hearing normal, ears appear normal, no oral mucosal ulcers Cardiovascular: regular rate and rhythym, no murmur, rub, or gallop, No edema Respiratory: no respiratory distress, no rales or rhonchi, clear to auscultation Gastrointestinal: normoactive bowel sounds, soft, non-tender abdomen, no palpable masses Genitourinary: no bladder fullness, no bladder tenderness Skin: warm, normal color, no rashes or abrasions, no fluctuance, no induration, No mottled Musculoskeletal: full muscle strength, no muscle tenderness, normal joint ROM, no joint effusions Psychiatric: interacting appropriately, not anxious, not encephalopathic, thought process linear Lymph, Heme, Immunologic: no cervical LAD, no supraclavicular LAD Lab Data & Imaging Review 01/19/19 15:15 01/19/19 15:15 WBC 8.17 10^3/uL (3.80-9.50) 01/19/19 15:15 RBC 5.39 10^6/uL (4.40-6.38) 01/19/19 15:15 Hgb 18.0 g/dL (13.7-17.5) H 01/19/19 15:15 Hct 49.1 % (40.0-51.0) 01/19/19 15:15 MCV 91.1 fL (81.5-99.8) 01/19/19 15:15 MCH 33.4 pg (27.9-34.1) 01/19/19 15:15 MCHC 36.7 g/dL (32.4-36.7) 01/19/19 15:15 RDW 13.2 % (11.5-15.2) 01/19/19 15:15 Plt Count 149 10^3/uL (150-400) L 01/19/19 15:15 MPV 8.8 fL (8.7-11.7) 01/19/19 15:15 Neut % (Auto) 70.6 % (39.3-74.2) 01/19/19 15:15 Lymph % (Auto) 20.1 % (15.0-45.0) 01/19/19 15:15 [place] % (Auto) 8.2 % (4.5-13.0) 01/19/19 15:15 Eos % (Auto) 0.5 % (0.6-7.6) L 01/19/19 15:15 Baso % (Auto) 0.2 % (0.3-1.7) L 01/19/19 15:15 Nucleat RBC Rel Count 0.0 % (0.0-0.2) 01/19/19 15:15 Absolute Neuts (auto) 5.77 10^3/uL (1.70-6.50) 01/19/19 15:15 Absolute Lymphs (auto) 1.64 10^3/uL (1.00-3.00) 01/19/19 15:15 Absolute Monos (auto) 0.67 10^3/uL (0.30-0.80) 01/19/19 15:15 Absolute Eos (auto) 0.04 10^3/uL (0.03-0.40) 01/19/19 15:15 Absolute Basos (auto) 0.02 10^3/uL (0.02-0.10) 01/19/19 15:15 Absolute Nucleated RBC 0.00 10^3/uL (0-0.01) 01/19/19 15:15 Immature Gran % 0.4 % (0.0-1.1) 01/19/19 15:15 Immature Gran # 0.03 10^3/uL (0.00-0.10) 01/19/19 15:15 PT 13.6 SEC (12.0-15.0) 01/19/19 15:15 INR 1.08 (0.83-1.16) 01/19/19 15:15 APTT 26.9 SEC (23.0-38.0) 01/19/19 15:15 Sodium 137 mEq/L (135-145) 01/19/19 15:15 Potassium 4.2 mEq/L (3.5-5.2) 01/19/19 15:15 Chloride 105 mEq/L (97-110) 01/19/19 15:15 Carbon Dioxide 23 mEq/l (22-31) 01/19/19 15:15 Anion Gap 9 mEq/L (6-14) 01/19/19 15:15 BUN 19 mg/dL (7-23) 01/19/19 15:15 Creatinine 0.7 mg/dL (0.7-1.3) 01/19/19 15:15 Estimated GFR > 60 01/19/19 15:15 Glucose 127 mg/dL (70-100) H 01/19/19 15:15 Calcium 10.3 mg/dL (8.5-10.4) 01/19/19 15:15 Total Bilirubin 2.0 mg/dL (0.1-1.4) H 01/19/19 15:15 Conjugated Bilirubin 0.5 mg/dL (0.0-0.5) 01/19/19 15:15 Unconjugated Bilirubin 1.5 mg/dL (0.0-1.1) H 01/19/19 15:15 AST 39 IU/L (17-59) 01/19/19 15:15 ALT 34 IU/L (21-72) 01/19/19 15:15 Alkaline Phosphatase 91 IU/L (38-126) 01/19/19 15:15 POC Troponin I 0.00 ng/mL (0.00-0.08) 01/19/19 15:35 Total Protein 7.9 g/dL (6.3-8.2) 01/19/19 15:15 Albumin 4.9 g/dL (3.5-5.0) 01/19/19 15:15 Lipase 79 IU/L (23-300) 01/19/19 15:15 Assessment & Plan Assessment: 68-year-old male with past medical history of coronary artery disease status post stenting to his obtuse marginal in December 2017 presents with pain between his shoulder blades. Chest pain- his heart score is calculated at 4. He follows with Dr. Jasmine. He was scheduled to have an exercise stress test in about 2 weeks. I discussed the case with the emergency room physician. Initial troponin is negative. His EKG has no acute ST or T-wave changes suggestive of ischemia. -cycle troponins -assuming troponins are negative x3 and he is chest pain-free, proceed with exercise stress test -continue aspirin, Plavix and irbesartan -monitor on telemetry Hypertension- takes irbesartan for this. Notably hypertensive in the Emergency with systolics around 170. Continue irbesartan and add on p.r.n. Hydralazine Hyperlipidemia- continue Lipitor Hyperbilirubinemia- mildly elevated unconjugated bilirubin, may be related to previously treated hep C or alcohol use. Recheck LFTs in the morning after hydration Prophylaxis-SCDs and Lovenox Fluids-normal saline Electrolytes-within normal limits Nutrition-cardiac diet then NPO at midnight Cor-full Dispo-observation for chest pain rule out
[2019-01-19] MEDS ORDERED: SERTRALINE HCL 100 MG TAB PO SCH (21:00)
[2019-01-19] MEDS ORDERED: hydrALAZINE 20 MG/ML VIAL IVP PRN (21:07)
--- NOTE | 2019-01-19 22:49 | CPEKG ---
Test Reason : OPEN Blood Pressure : / mmHG Vent. Rate : 060 BPM Atrial Rate : 061 BPM P-R Int : 162 ms QRS Dur : 103 ms QT Int : 411 ms P-R-T Axes : 062 057 062 degrees QTc Int : 411 ms Sinus rhythm Minimal ST elevation, anterior leads Confirmed by Erick King ([id number]) on 01/19/2019 10:48:48 PM Referred By: Theodora Kearney Confirmed By:Erick King
[2019-01-20 08:06] LABS: PLATELET COUNT 119 10^3/uL (150-400)
--- NOTE | 2019-01-20 08:40 | HOSPPROG ---
Hospitalist Progress Note Objective: Vital Signs Temp Pulse Resp BP Pulse Ox 36.5 C 69 16 135/73 H 96 01/20/19 08:08 01/20/19 08:08 01/20/19 08:08 01/20/19 08:08 01/20/19 08:08 Laboratory Results 01/20/19 07:44 01/20/19 07:44 01/19/19 01/20/19 01/21/19 05:59 05:59 05:59 Intake Total 350 Balance 350 PT 13.6 SEC (12.0-15.0) 01/19/19 15:15 INR 1.08 (0.83-1.16) 01/19/19 15:15 ICD10 Worksheet Patient Problems: Problems Problem Status Onset Chest pain Acute Supraventricular tachycardia Acute
[2019-01-20] MEDS ORDERED: CLOPIDOGREL BISULFATE 75 MG TAB PO SCH (09:00)
[2019-01-20] MEDS ORDERED: ATORVASTATIN CALCIUM 20 MG TAB PO SCH (09:00)
[2019-01-20] MEDS ORDERED: IRBESARTAN 150 MG TAB PO SCH (09:00)
[2019-01-20] MEDS ORDERED: ASPIRIN EC 81 MG TAB PO SCH (09:00)
--- NOTE | 2019-01-20 11:53 | ASMTCMCOM ---
CM Note CM Note Notes: Patients case discussed in rounds. Patient is a 68 male admitted for chest pain, back pain, and indigestion. Patient does not have discharge needs at this time. CM available for changes. Plan: Independent Date Signed: 01/20/2019 11:52 AM Electronically Signed By:Jessie Kerr
[2019-01-20 12:44] VITALS: BP 149/85
--- NOTE | 2019-01-20 13:41 | CPR ---
[f rep st] NONINVASIVE CARDIAC PROCEDURE REPORT DATE OF PROCEDURE: 01/20/2019 REPORT TITLE: TREADMILL STRESS TEST REASON FOR TEST: 1. Known coronary artery disease. 2. Chest pain. Resting EKG shows a sinus bradycardia with a rate of 57, blood pressure 152/80. One PAC is noted, ot herwise, no arrhythmias. STRESS PORTION: The patient was exercised according to the Jorge Luis protocol for a total of 10 minutes. Peak heart rate 143, peak blood pressure 198/90, MET level 10.7. At peak exercise, test was stoppe d due to fatigue. He did have ST changes in the inferior and lateral leads that were upsloping with some T-wave inversion. This test was reviewed with Dr. Grant Elder, recommendationto proceed with nuclear stress testing. This was discussed with the patient and he is in agreement to proceed with nuclear stress test. RECOVERY: He did spontaneously recover and EKG returned to baseline. He had no chest pain during te sting. At this time, he currently is stable to return to his room. RECOMMENDATION: For nucleolar stress test. /[id number]/MODL
--- NOTE | 2019-01-20 13:46 | CPR ---
[f rep st] NONINVASIVE CARDIAC PROCEDURE REPORT DATE OF PROCEDURE: 01/20/2019 SUPERVISING PHYSICIAN: Dr. Grant Elder. REASON FOR TEST: 1. Chest pain. 2. Known coronary artery disease. 3. Abnormal exercise treadmill test. Resting EKG shows a sinus rhythm of a rate of 61, blood pressure 148/82. EKG shows no arrhythmias or ischemic changes. He is pain free at this time. NUCLEAR IMAGING PORTION: He was exercised according to the Jorge Luis protocol for a total of 9 minutes. Peak blood pressure 168/80, peak heart rate 132, MET level reached 10.2. During exercise, he had no chest pain or shortness of breath. EKG did show inferior T-wave inversion intermittently, septal la teral changes at peak exercise. Showed upsloping ST-segment. This did normalize during recovery. Denys bedolla had no arrhythmias and remained asymptomatic throughout the test. RECOVERY: He did spontaneously recover. EKG normalized to similar pretest. At this time, he currently is stable for nuclear imaging. /[id number]/MODL
--- NOTE | 2019-01-20 13:47 | PDDCSUM ---
Discharge Summary Discharge Summary: Date of Admission: 01/19/2019 Date of Discharge: 01/20/2019 Studies: 1. Exercise treadmill stress test 2. Nuclear medicine MPI Discharge Diagnoses: 1. Chest/scapular pain, likely musculoskeletal 2. CAD 3. HTN 4. HLD 5. Chronic thrombocytopenia 6. H/o hepatitis C s/p treatment 7. Mild unconjugated hyperbilirubinemia Brief Hospital Course: 68yo M with CAD s/p CRISS to obtuse marginal 12/2017 with no other significant coronary disease noted on angiography at that time presented with acute onset of scapular pain and some chest pressure. This seemed to improve after administration of nitroglycerin. Serial troponin (x3) were negative and ECG had no dynamic changes. He underwent treadmill stress test that was abnormal, showing upsloping ST depressions and T wave inversions inferolaterally. He subsequently underwent nuclear imaging which was completely normal. He was encouraged to continue his aspirin and plavix. His blood pressure is adequately controlled. He has a recent LDL cholesterol of 63. Medications: Please refer to EMR. No changes were made. Follow Up Plan: 1. Continue to see primary divisional merchandising manager Dr Jasmine routinely Physical Exam: Vitals and telemetry reviewed, no arrhythmias. Alert and oriented , rrr, lungs clear, abdomen soft, no jvd or leg edema.
--- NOTE | 2019-01-21 05:54 | CPEKG ---
Test Reason : OPEN Blood Pressure : / mmHG Vent. Rate : 050 BPM Atrial Rate : 050 BPM P-R Int : 156 ms QRS Dur : 104 ms QT Int : 441 ms P-R-T Axes : 059 052 062 degrees QTc Int : 403 ms Sinus rhythm Minimal ST elevation, anterior leads Confirmed by Guillaume Ruiz ([id number]) on 01/21/2019 5:54:24 AM Referred By: Denis Anne Confirmed By:Guillaume Ruiz
== END 2019-01-20 14:19 | disposition home or self-care (01) ==
LOC: OBSVTOIN 16:29 → INTOOBSV 16:29 → F2W 17:10 → OBSVTOIN 17:10 → INTOOBSV 17:10
PROVIDERS: ADMIT Internal Medicine; ATTEND Internal Medicine
DX: R07.89 Other chest pain (principal); I25.10 Atherosclerotic heart disease of native coronary artery without angina pectoris; I10 Essential (primary) hypertension; E78.5 Hyperlipidemia, unspecified; D69.6 Thrombocytopenia, unspecified; E80.6 Other disorders of bilirubin metabolism; Z86.19 Personal history of other infectious and parasitic diseases; Z79.82 Long term (current) use of aspirin; Z95.5 Presence of coronary angioplasty implant and graft; Z87.891 Personal history of nicotine dependence
CPT/HCPCS: 71046; 78452; 93005; 93017; A9500; G0378; 84484-ER; J0360